=== PATIENT | female | born 1975 ===

== ENCOUNTER 2018-08-09 10:09 | Inpatient (IN) | payer OTHER ==
[~2018-08-09] VITALS: Ht 160 cm; Wt 3.2 kg
[~2018-08-09 10:09] MED LIST: TYLENOL-CODEINE1 TAB PO
[2018-08-16] MEDS ORDERED: NIFE60TA3 PO (14:21)
[2018-08-23] MEDS ORDERED: PRENATAL TABLE1 EAC1 PO (06:19)
== END 2018-08-26 15:04 | disposition home or self-care (01) | DRG 786 ==
LOC: O/R 08-23 05:45 → OB/GYN 08-23 07:00
PROVIDERS: ADMIT Obstetrics & Gynecology Maternal & Fetal Medicine
PROC: 0UCC7ZZ Extirpation of Matter from Cervix, Via Natural or Artificial Opening (ICD-10-PCS; 2018-08-23)
PROC: 4A1HXCZ Monitoring of Products of Conception, Cardiac Rate, External Approach (ICD-10-PCS; 2018-08-23)
PROC: 10D00Z1 Extraction of Products of Conception, Low, Open Approach (ICD-10-PCS; principal; 2018-08-23 07:00)
DX: O82 Encounter for cesarean delivery without indication (principal); O34.33 Maternal care for cervical incompetence, third trimester; O65.5 Obstructed labor due to abnormality of maternal pelvic organs; Z3A.39 39 weeks gestation of pregnancy; Z37.0 Single live birth